=== PATIENT | female | born 1980 | race Two or more races ===

== ENCOUNTER 2021-09-18 20:27 | Emergency (ER) | payer MEDICAID, OTHER ==
[~2021-09-18] VITALS: Ht 160 cm; Wt 89.8 kg
[2021-09-18 20:27] VITALS: BP 135/76
[2021-09-18] MEDS ORDERED: IBUP800T27 PO (22:42)
[2021-09-18] MEDS ORDERED: KETOROLAC TROMETH 60MG/2ML VIAL IM ONE (22:45)
== END 2021-09-18 22:54 | disposition home or self-care (01) ==
LOC: ER 20:27
DX: M77.12 Lateral epicondylitis, left elbow (principal); Z86.2 Personal history of diseases of the blood and blood-forming organs and certain disorders involving the immune mechanism; Z79.1 Long term (current) use of non-steroidal anti-inflammatories (NSAID)
CPT/HCPCS: 72125; 73080; 96372; 99284; J1885